=== PATIENT | female | born 1990 | race Caucasian/White ===

== ENCOUNTER 2017-06-29 19:58 | Inpatient (IN) ==
[2017-06-29] MEDS: LACTATED RINGERS 1,000 ML IV SCH (23:40)
[2017-06-30 00:10] LABS: Basophils # 0.1 10*3/uL (0.0-0.2); Basophils % 0.7 % (0.0-0.8); Eosinophils # 0.1 10*3/uL (0.0-0.87); Eosinophils % 1.9 % (0.00-10.9); Hematocrit 32.3 VOL% (35.7-47.0); Hemoglobin 11.3 GM/DL (12.0-16.0); Immature Granulocytes % 0.9 %; Immature Granulocytes Absolute 0.07 #; Lymphocytes # 1.8 10*3/uL (1.4-4.0); Lymphocytes % 23.9 % (21.3-54.2); Mean Corpuscular Hemoglobin 31 PG (27-34); Mean Platelet Volume 11.6 FL (9.6-12.0); Monocytes # 0.6 10*3/uL (0.11-0.8); Monocytes % 7.7 % (1.7-12.7); Neutrophils # 4.9 10*3/uL (1.4-7.4); Neutrophils % 64.9 % (38.7-73.9); Platelet Count 188 T/CUMM (130-400); Red Blood Count 3.67 MC/CUMM (3.8-5.5); Red Cell Distribution Width 12.5 % (9.3-17.3); White Blood Count 7.5 T/CUMM (4-12)
[2017-06-30 00:36] LABS: Alanine Aminotransferase 46 U/L (13-56); Albumin 2.6 G/DL (3.4-5.0); Alkaline Phosphatase 238 U/L (45-117); Aspartate Amino Transferase 36 U/L (0-37); Bilirubin,Total < 0.39 MG/DL (0.2-1.0); Blood Urea Nitrogen 10 MG/DL (7-18); Calcium 8.4 MG/DL (8.5-10.1); Glucose 86 MG/DL (74-106); Osmolality,Calculated 272.7 MOS/KG (273-304); Potassium 3.6 MMOL/L (3.5-5.1); Sodium 138 MMOL/L (136-145)
[2017-06-30] MEDS ORDERED: ONDANSETRON 4 MG/2 ML VIAL IV PRN ×2 (02:44→12:03)
[2017-06-30] MEDS ORDERED: BUTORPHANOL 2 MG/ML VIAL IV PRN (02:44)
[2017-06-30] MEDS: OXYTOCIN/LR 20 UNIT/1,000 ML BAG IV SCH (03:27)
[2017-06-30] MEDS ORDERED: diphenhydrAMINE 50 MG/1 ML VIAL IV PRN ×2 (04:04)
[2017-06-30] MEDS ORDERED: LACTATED RINGERS 1,000 ML IV ONE (04:04)
[2017-06-30] MEDS ORDERED: hydrOXYzine HCL 25 MG/1 ML VIAL IM PRN (04:04)
[2017-06-30] MEDS ORDERED: PROMETHAZINE 25 MG/1 ML VIAL IM ONE (04:04)
[2017-06-30] MEDS ORDERED: FAMOTIDINE 20 MG/2 ML VIAL IV ONE (04:04)
[2017-06-30] MEDS ORDERED: ePHEDrine 50 MG/ML AMP IV PRN (04:04)
[2017-06-30] MEDS ORDERED: CITRIC ACID/SODIUM CITRATE 30 ML UDCUP PO ONE (04:04)
[2017-06-30] MEDS ORDERED: ONDANSETRON 4 MG/2 ML VIAL IV ONE (04:04)
[2017-06-30] MEDS: fentaNYL 2 MCG/ROPIV 0.2% EPID 150 ML EPIDURAL SCH ×2 (05:54→23:45)
[2017-06-30] MEDS ORDERED: miSOPROStol 200 MCG TABLET ONE (10:57)
[2017-06-30] MEDS ORDERED: METHYLERGONOVINE 0.2 MG/1 ML AMP ONE (10:58)
[2017-06-30] MEDS ORDERED: MEASLES/MUMPS/RUBELLA VACCINE 0.5 ML VIAL SUBCUT ONE (12:03)
[2017-06-30] MEDS ORDERED: HYDROCORTISONE 2.5% RECTAL CREAM 30 GM TUBE TOP PRN (12:03)
[2017-06-30] MEDS ORDERED: DIPH/TET/ACEL PERT BOOSTER VACCINE 0.5 ML VIAL IM ONE (12:03)
[2017-06-30] MEDS ORDERED: RHO(D) IMMUNE GLOBULIN 300 MCG SYRINGE IM ONE (12:03)
[2017-06-30] MEDS ORDERED: OXYTOCIN/LR 20 UNIT/1,000 ML BAG IV ONE (12:03)
[2017-06-30] MEDS ORDERED: BISACODYL 10 MG SUPP RECTAL PRN (12:03)
[2017-06-30] MEDS ORDERED: BENZOCAINE 20%/MENTHOL 0.5% SPRAY 56 GM CAN TOP PRN (12:03)
[2017-06-30] MEDS ORDERED: oxyCODONE/ACETAMINOPHEN 5-325 MG TABLET PO PRN (12:03)
[2017-06-30] MEDS ORDERED: WITCH HAZEL PADS 100/JAR TOP PRN (12:03)
[2017-06-30] MEDS ORDERED: LANOLIN 50% CREAM 0.3 OZ TUBE TOP PRN (12:03)
[2017-06-30] MEDS ORDERED: ACETAMINOPHEN 325 MG TABLET PO PRN (12:03)
[2017-06-30] MEDS ORDERED: OXYTOCIN 10 UNIT/ML VIAL ONE (14:11)
[2017-06-30] MEDS ORDERED: PANTOPRAZOLE 40 MG TABLET PO PRN (15:20)
[2017-06-30] MEDS: IBUPROFEN 800 MG TABLET PO PRN ×2 (17:26→22:59)
[2017-06-30] MEDS: oxyCODONE/ACETAMINOPHEN 5-325 MG TABLET PO PRN ×2 (17:26→22:59)
[2017-06-30] MEDS ORDERED: INFLUENZA VIRUS VACCINE 0.5 ML SYRINGE IM ONE (20:32)
[2017-06-30] MEDS: DOCUSATE SODIUM 100 MG CAPSULE PO SCH (22:59)
[2017-06-30] MEDS: LACTATED RINGERS 1,000 ML IV SCH (23:44)
[2017-07-01] MEDS: LACTATED RINGERS 1,000 ML IV SCH (02:37)
[2017-07-01 06:08] LABS: Basophils # 0.1 10*3/uL (0.0-0.2); Basophils % 0.6 % (0.0-0.8); Eosinophils # 0.1 10*3/uL (0.0-0.87); Eosinophils % 1.3 % (0.00-10.9); Hematocrit 26.7 VOL% (35.7-47.0); Hemoglobin 9.4 GM/DL (12.0-16.0); Immature Granulocytes % 0.8 %; Immature Granulocytes Absolute 0.09 #; Lymphocytes # 2.3 10*3/uL (1.4-4.0); Lymphocytes % 20.7 % (21.3-54.2); Mean Corpuscular HGB Conc 35.2 GM/DL (32-36); Mean Corpuscular Hemoglobin 31 PG (27-34); Mean Corpuscular Volume 88.1 FL (87-102); Mean Platelet Volume 11.1 FL (9.6-12.0); Monocytes # 0.7 10*3/uL (0.11-0.8); Monocytes % 6.4 % (1.7-12.7); Neutrophils # 7.6 10*3/uL (1.4-7.4); Neutrophils % 70.2 % (38.7-73.9); Red Blood Count 3.03 MC/CUMM (3.8-5.5); Red Cell Distribution Width 12.6 % (9.3-17.3)
[2017-07-01 06:11] LABS: Platelet Count 142 T/CUMM (130-400); White Blood Count 10.9 T/CUMM (4-12)
[2017-07-01] MEDS: oxyCODONE/ACETAMINOPHEN 5-325 MG TABLET PO PRN (06:23)
[2017-07-01] MEDS: IBUPROFEN 800 MG TABLET PO PRN ×2 (06:23→21:27)
[2017-07-01] MEDS: OXYTOCIN/LR 20 UNIT/1,000 ML BAG IV SCH (06:25)
[2017-07-01] MEDS: MULTIVITAMIN (PRENATAL) TABLET PO SCH (09:49)
[2017-07-01] MEDS: FERROUS SULFATE 325 MG TABLET PO SCH ×2 (09:49→21:25)
[2017-07-01] MEDS: DOCUSATE SODIUM 100 MG CAPSULE PO SCH ×2 (09:49→21:25)
[2017-07-02] MEDS: DOCUSATE SODIUM 100 MG CAPSULE PO SCH (09:52)
[2017-07-02] MEDS: MULTIVITAMIN (PRENATAL) TABLET PO SCH (09:52)
[2017-07-02] MEDS: FERROUS SULFATE 325 MG TABLET PO SCH (09:52)
[2017-07-02 11:37] VITALS: BP 111/67
== END 2017-07-02 13:40 | disposition home or self-care (01) | DRG 775 ==
LOC: N.LDOUT 19:58 → N.LD 20:02 → N.OB 06-30 15:07
PROVIDERS: ADMIT Specialist; ATTEND Specialist

== ENCOUNTER 2020-04-13 02:07 | Inpatient (IN) ==
[2020-04-13] MEDS ORDERED: ONDANSETRON 4 MG/2 ML VIAL IV PRN ×2 (02:26→12:10)
[2020-04-13] MEDS ORDERED: MEPERIDINE 50 MG/1 ML VIAL IM PRN (02:26)
[2020-04-13] MEDS ORDERED: BUTORPHANOL 2 MG/ML VIAL IV PRN (02:26)
[2020-04-13] MEDS ORDERED: LACTATED RINGERS 1,000 ML IV SCH (02:30)
[2020-04-13 03:00] LABS: Basophils # 0.1 10*3/uL (0.0-0.2); Basophils % 0.9 % (0.0-0.8); Eosinophils # 0.3 10*3/uL (0.0-0.87); Eosinophils % 3.8 % (0.00-10.9); Hematocrit 38.1 VOL% (35.7-47.0); Hemoglobin 13.2 GM/DL (12.0-16.0); Immature Granulocytes % 1.3 %; Lymphocytes # 1.8 10*3/uL (1.4-4.0); Mean Corpuscular HGB Conc 34.6 GM/DL (32-36); Mean Corpuscular Volume 92.9 FL (87-102); Mean Platelet Volume 10.3 FL (9.6-12.0); Monocytes % 9.4 % (1.7-12.7); Neutrophils % 61.6 % (38.7-73.9); Platelet Count 207 T/CUMM (130-400); Red Cell Distribution Width 12.1 % (9.3-17.3); White Blood Count 7.7 T/CUMM (4-12)
[2020-04-13] MEDS ORDERED: OXYTOCIN/LR 20 UNIT/1,000 ML BAG IV SCH (06:00)
[2020-04-13] MEDS ORDERED: NALOXONE 0.4 MG/ML VIAL IV PRN (06:50)
[2020-04-13] MEDS ORDERED: ePHEDrine 50 MG/ML VIAL IV PRN (06:50)
[2020-04-13] MEDS ORDERED: LACTATED RINGERS 250 ML IV PRN (06:50)
[2020-04-13] MEDS ORDERED: diphenhydrAMINE 50 MG/1 ML VIAL IV PRN ×2 (06:50)
[2020-04-13] MEDS ORDERED: FAMOTIDINE 20 MG/2 ML VIAL IV ONE (06:52)
[2020-04-13] MEDS ORDERED: CITRIC ACID/SODIUM CITRATE 30 ML UDCUP PO ONE (06:52)
[2020-04-13] MEDS ORDERED: LACTATED RINGERS 1,000 ML IV ONE (06:52)
[2020-04-13] MEDS ORDERED: fentaNYL 2 MCG/ROPIV 0.2% EPID 100 ML EPIDURAL SCH (07:00)
[2020-04-13] MEDS ORDERED: miSOPROStoL 200 MCG TABLET ONE (09:35)
[2020-04-13] MEDS ORDERED: METHYLERGONOVINE 0.2 MG/1 ML AMP ONE (09:36)
[2020-04-13] MEDS ORDERED: CARBOPROST TROMETHAMINE 250 MCG/ML AMP IM ONE (09:36)
[2020-04-13 10:06] LABS: Bilirubin,Urine Negative (Negative); Blood, Urine Negative (Negative); Glucose,Urine (UA) Negative (Negative); Ketones,Urine Negative (Negative); Mucus,Urine Occasional /LPF (Occasional); Nitrite,Urine Negative (Negative); Protein,Urine Negative; RBC,Urine <1 /HPF (0-4); Squamous Epithelial Cell,Urine Occasional /HPF (0-10); Urine Appearance CLEAR (Clear); Urine Color Yellow (Yellow); Urine Specific Gravity 1.006 (1.001-1.035); Urine Urobilinogen < 2.0 EU/DL (0.2-1.0)
[2020-04-13 10:17] LABS: Cord Arterial Blood HCO3 23.9 MMOL/L
[2020-04-13 10:20] LABS: Cord Venous Blood HCO3 24.2 MMOL/L; Cord Venous Blood PCO2 39.8 MMHG; Cord Venous Blood PO2 29.4 MMHG
[2020-04-13] MEDS ORDERED: DIPH/TET/ACEL PERT BOOSTER VACCINE 0.5 ML VIAL IM ONE (12:10)
[2020-04-13] MEDS ORDERED: ACETAMINOPHEN 325 MG TABLET PO PRN (12:10)
[2020-04-13] MEDS ORDERED: BISACODYL 10 MG SUPP RECTAL PRN (12:10)
[2020-04-13] MEDS ORDERED: RHO(D) IMMUNE GLOBULIN 300 MCG SYRINGE IM ONE (12:10)
[2020-04-13] MEDS ORDERED: IBUPROFEN 800 MG TABLET PO PRN (12:10)
[2020-04-13] MEDS ORDERED: oxyCODONE/ACETAMINOPHEN 5-325 MG TABLET PO PRN ×2 (12:10)
[2020-04-13] MEDS ORDERED: MEASLES/MUMPS/RUBELLA VACCINE 0.5 ML VIAL SUBCUT ONE (12:10)
[2020-04-13] MEDS ORDERED: WITCH HAZEL PADS 100/JAR TOP PRN (12:10)
[2020-04-13] MEDS ORDERED: LANOLIN 50% CREAM 0.3 OZ TUBE TOP PRN (12:10)
[2020-04-13] MEDS ORDERED: OXYTOCIN/LR 20 UNIT/1,000 ML BAG IV ONE (12:10)
[2020-04-13] MEDS ORDERED: BENZOCAINE 20%/MENTHOL 0.5% SPRAY 56 GM CAN TOP PRN (12:10)
[2020-04-13] MEDS ORDERED: HYDROCORTISONE 2.5% RECTAL CREAM 30 GM TUBE TOP PRN (12:10)
[2020-04-13] MEDS: DOCUSATE SODIUM 100 MG CAPSULE PO SCH (20:52)
[2020-04-14 06:33] LABS: Basophils # 0.1 10*3/uL (0.0-0.2); Eosinophils # 0.2 10*3/uL (0.0-0.87); Eosinophils % 2.8 % (0.00-10.9); Hematocrit 34.9 VOL% (35.7-47.0); Hemoglobin 12.2 GM/DL (12.0-16.0); Immature Granulocytes % 0.9 %; Immature Granulocytes Absolute 0.08 #; Lymphocytes # 1.5 10*3/uL (1.4-4.0); Lymphocytes % 17.6 % (21.3-54.2); Mean Corpuscular Volume 93.8 FL (87-102); Mean Platelet Volume 10.3 FL (9.6-12.0); Monocytes % 7.6 % (1.7-12.7); Neutrophils % 70.1 % (38.7-73.9); Platelet Count 159 T/CUMM (130-400); Red Blood Count 3.72 MC/CUMM (3.8-5.5); Red Cell Distribution Width 12.2 % (9.3-17.3); White Blood Count 8.6 T/CUMM (4-12)
[2020-04-14] MEDS: DOCUSATE SODIUM 100 MG CAPSULE PO SCH ×2 (08:40→21:08)
[2020-04-15] MEDS: DOCUSATE SODIUM 100 MG CAPSULE PO SCH (08:50)
[2020-04-15 11:01] VITALS: BP 102/63
== END 2020-04-15 11:05 | disposition home or self-care (01) | DRG 807 ==
LOC: N.LDOUT 02:07 → N.LD 02:09 → N.OB 12:00
PROVIDERS: ADMIT Specialist; ATTEND Specialist